=== PATIENT | female | born 1970 | race Caucasian/White ===

== ENCOUNTER 2020-03-31 08:37 | Emergency (ER) | payer MEDICAID ==
[2020-03-31 09:44] VITALS: BP 118/68
== END 2020-03-31 09:46 | disposition home or self-care (01) ==
LOC: ED 08:37
DX: F41.9 Anxiety disorder, unspecified (principal); I10 Essential (primary) hypertension; Z88.0 Allergy status to penicillin

== ENCOUNTER 2020-04-23 09:09 | Emergency (ER) | payer MEDICAID ==
[~2020-04-23] VITALS: Ht 177.8 cm; Wt 43.5 kg
[2020-04-23 09:27] VITALS: BP 118/62
== END 2020-04-23 10:11 | disposition home or self-care (01) ==
LOC: ED 09:09
DX: F41.9 Anxiety disorder, unspecified (principal); Z88.0 Allergy status to penicillin